=== PATIENT | female | born 1955 | race Caucasian/White ===

== ENCOUNTER 2025-08-25 10:17 | Outpatient (CLI) | payer MEDICARE, BC, SELFPAY ==
--- NOTE | 2025-08-25 10:26 | CTR_ITS ---
PROCEDURE INFORMATION: Exam: CT Temporal Bones Without Contrast. Exam date and time: 08/25/2025 10:37 AM Age: 70 years old Clinical indication: Pain; Other: R acute otitis externa; RT acute otitis externa, right diverticulit is what the patient was told TECHNIQUE: Imaging protocol: Computed tomography of the temporal bones without contrast. Radiation optimization: All CT scans at this facility use at least one of these dose optimization techniques: automated exposure control; mA and/or kV adjustment per patient size (includes targeted exams where dose is matched to clinical indication); or iterative reconstruction. COMPARISON: No relevant prior studies available. RADIATION DOSE METRICS: Total DLP (mGy-cm): 330.5 FINDINGS: RIGHT TEMPORAL BONE: External auditory canal: Unremarkable. Meso tympanum: There is no thickening or retraction of the tympanic membrane. Ossicular mineralization, development, and alignment are normal. There is no indication of otitis media or mastoiditis. No bone erosion is evident. Otic capsule: The vestibulocochlear apparatus are normal development. There is no indication of otosclerosis or hydrops. There is no bony dehiscence of the semicircular canals. IAC: There is no evidence of erosion of the internal auditory canal. There is good symmetry with the contralateral side. LEFT TEMPORAL BONE: External auditory canal: Is small soft tissue band is seen at the in the midportion of the membranous external canal, presumably reflecting debris or cerumen. The left external auditory canal is otherwise unremarkable in appearance. Meso tympanum: There is no thickening or retraction of the tympanic membrane. Ossicular mineralization, development, and alignment are normal. There is no indication of otitis media or mastoiditis. No bone erosion is evident. Otic capsule: The vestibulocochlear apparatus are normal development. There is no indication of otosclerosis or hydrops. There is no bony dehiscence of the semicircular canals. IAC: There is no evidence of erosion of the internal auditory canal. There is good symmetry with the contralateral side. ADDITIONAL STRUCTURES: Nasopharynx and visible paranasal sinuses: A small retention cyst is seen posteriorly within the left sphenoid sinus. A 2nd retention cyst is seen in the inferolateral aspect of the right maxillary sinus. Nasal septum is midline. Naso, jesus alberto, and hypopharynx are unremarkable to the extent seen. The visible portions of the brain appear normal. Prior right cataract surgery is noted. CT/CT temporal bone wo con* [id number] IMPRESSION: 1. Structurally normal temporal bones. No evidence of temporal bone pathology. 2. Minimal inflammatory changes left sphenoid and right maxillary sinuses
== END 2025-08-25 10:18 | disposition home or self-care (01) ==
LOC: RAD 10:22
PROVIDERS: PCP Nurse Practitioner Family; Visit Provider Specialist
DX: H60.331 Swimmer's ear, right ear (principal); M79.89 Other specified soft tissue disorders; J34.1 Cyst and mucocele of nose and nasal sinus; M27.40 Unspecified cyst of jaw; Z98.41 Cataract extraction status, right eye
CPT/HCPCS: 70480